=== PATIENT | male | born 1970 | race Caucasian/White ===

== ENCOUNTER 2017-06-08 10:15 | Inpatient (IN) | payer OTHER ==
[2017-06-08] VITALS (10 sets, daily range): BP systolic 95–109; BP diastolic 58–66; PULSE 83–121; RESP 12–14; TEMP 98.2–98.6; O2SAT 99–100
[~2017-06-08] VITALS: Ht 172.7 cm; Wt 130.9 kg
[2017-06-08] MEDS ORDERED: MORPHINE SULFATE 8 MG/ML INJ ONE (10:18)
[2017-06-08] MEDS ORDERED: ceFAZolin 2 GM PREMIX 50 ML ONE (10:18)
[2017-06-08] MEDS ORDERED: ONDANSETRON HCL 4 MG/2 ML VIAL ONE (10:18)
[2017-06-08] MEDS ORDERED: LIDOCAINE 1%/EPINEPHrine 1:100,000 SOLN 20 ML VIAL ONE (10:21)
[2017-06-08] MEDS ORDERED: SUCCINYLCHOLINE CHLORIDE 200 MG/10 ML VIAL ONE (10:36)
[2017-06-08] MEDS ORDERED: PROPOFOL 1000 MG/100 ML INJ 100 ML ONE (10:45)
[2017-06-08 10:47] LABS: AUTOMATED NEUTROPHIL # 14.7 TH/MM3 (1.8-7.7); BASOPHIL # 0.1 TH/MM3 (0-0.2); BASOPHIL % 0.6 % (0.0-2.0); EOSINOPHIL # 0.4 TH/MM3 (0-0.4); EOSINOPHIL % 2.4 % (0.0-4.0); HEMATOCRIT 44.3 % (39.0-51.0); HEMO FLAGS DIFF FINAL; I-STAT SODIUM 143 MMOL/L (138-146); LYMPH % 15.4 % (9.0-44.0); LYMPHOCYTE # 2.9 TH/MM3 (1.0-4.8); MEAN CELL VOLUME 85.3 FL (80.0-100.0); MONO % 4.1 % (0.0-8.0); NEUT % 77.5 % (16.0-70.0); PLATELET COUNT 288 TH/MM3 (150-450); RED BLOOD COUNT 5.19 MIL/MM3 (4.50-5.90); RED CELL DISTRIBUTION WIDTH 13.8 % (11.6-17.2)
[2017-06-08 10:53] LABS: APTT (PATIENT) 24.3 SEC (24.3-30.1); PROTHROMBIN TIME - PATIENT 10.7 SEC (9.8-11.6)
[2017-06-08] MEDS ORDERED: SODIUM CHLORIDE 0.9% FLUSH 10 ML FLUSH IV FLUSH PRN (11:00)
[2017-06-08] MEDS ORDERED: ONDANSETRON HCL 4 MG/2 ML VIAL IV PRN (11:00)
[2017-06-08] MEDS ORDERED: Post-op Orders (for Pharmacy) MISC XX ONE (11:00)
[2017-06-08] MEDS ORDERED: NALOXONE HCL 0.4 MG/ML AMP IV PRN (11:00)
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
[2017-06-08] MEDS ORDERED: IOHEXOL 350 MG/ML 10 ML VIAL (for RAD DIAG) IV ONE (11:17)
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
[2017-06-08] MEDS: LACTATED RINGER'S 1000 ML INJ 1,000 ML IV SCH ×2 (11:30→21:41)
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
[2017-06-08] MEDS ORDERED: ETOMIDATE 20 MG/10 ML VIAL ONE (11:37)
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
[2017-06-08] MEDS ORDERED: MAGNESIUM SULFATE INJ 2 GM in SODIUM CHLORIDE 0.9% INJ 96 ML IV PRN (12:30)
[2017-06-08] MEDS ORDERED: POTASSIUM CHLOR 40 MEQ PREMIX 100 ML IV PRN ×2 (12:30)
[2017-06-08] MEDS ORDERED: MAGNESIUM OXIDE 400 MG TAB PO PRN (12:30)
[2017-06-08] MEDS ORDERED: POTASSIUM PHOSPHATE MONOBASIC 500 MG TAB PO PRN (12:30)
[2017-06-08] MEDS ORDERED: SODIUM PHOSPHATE INJ 30 MMOL in SODIUM CHLOR 0.9% 250 ML INJ 240 ML IV PRN (12:30)
[2017-06-08] MEDS ORDERED: POTASSIUM CHLOR 20 MEQ PREMIX 100 ML IV PRN ×2 (12:30)
[2017-06-08] MEDS ORDERED: POTASSIUM PHOSPHATE MONOBASIC 500 MG TAB PO/TUBE PRN (12:30)
[2017-06-08] MEDS ORDERED: MAGNESIUM SULFATE INJ 4 GM in SODIUM CHLORIDE 0.9% INJ 92 ML IV PRN (12:30)
[2017-06-08] MEDS ORDERED: POTASSIUM PHOSPHATE INJ 30 MMOL in SODIUM CHLOR 0.9% 250 ML INJ 250 ML IV PRN (12:30)
[2017-06-08] MEDS ORDERED: POTASSIUM CHLORIDE 25 MEQ EFFERVESCENT TAB PO PRN (12:30)
[2017-06-08] MEDS: PROPOFOL 1000 MG/100 ML INJ 100 ML IV SCH ×2 (12:37→12:39)
[2017-06-08] MEDS: fentaNYL DRIP 250 ML IV SCH (12:37)
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
[2017-06-08 13:45] LABS: MAGNESIUM 2.4 MG/DL (1.5-2.5)
[2017-06-08 13:58] LABS: BLOOD GAS BASE EXCESS -1.7 mmol/L (-2-2); BLOOD GAS CARBOXYHEMOGLOBIN 0.6 % (0-4); BLOOD GAS HCO3 24 mmol/L (22-26); BLOOD GAS METHEMOGLOBIN 0.7 % (0-2); BLOOD GAS O2 HGB SATURATION 98 % (90-100); BLOOD GAS OXYGEN CONTENT 21.3 Vol % (12.0-20.0); BLOOD GAS PCO2 47 mmHg (38-42); BLOOD GAS PO2 180 mmHG (61-120); BLOOD GAS TOTAL HGB 15.2 G/DL (12.0-16.0); CRITICAL VALUE NO; TEMP CORR TO 98.6
[2017-06-08 13:59] LABS: DRAW SITE LT RADIAL; FIO2 100 %; NUMBER OF ARTERIAL PUNCTURES 1; OXYGEN DEVICE VENTILATOR; STAT NO; ULNAR PULSE PRESENT; VENT SETTINGS PRVC14/550/1.0/+8
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
[2017-06-08] MEDS: PANTOPRAZOLE SODIUM 40 MG VIAL IV SCH (14:55)
--- NOTE | 2017-06-08 16:24 | PD.PROCEDR ---
Procedure Note Procedure DX: Respiratory Failure (J96.00) OP: Insertion Arterial Line ([id number]) Procedure: Jamie test normal left hand. Left wrist supinated, prepped and draped. Left radial artery cannulated with 20 gauge needle and wire easily advanced. Cannula passed over wire to 3 cm. Good waveform observed. Dressing applied. Circulation to left hand intact after procedure. Virgilio Romero MD Jun 08, 2017 16:24
[2017-06-08 16:46] LABS: BLOOD GAS BASE EXCESS -2.7 mmol/L (-2-2); BLOOD GAS CARBOXYHEMOGLOBIN 0.9 % (0-4); BLOOD GAS HCO3 22 mmol/L (22-26); BLOOD GAS METHEMOGLOBIN 0.9 % (0-2); BLOOD GAS O2 HGB SATURATION 96 % (90-100); BLOOD GAS PCO2 43 mmHg (38-42); BLOOD GAS PO2 103 mmHg (61-120); BLOOD GAS TOTAL HGB 13.3 G/DL (12.0-16.0); TEMP CORR TO 98.6
[2017-06-08 16:47] LABS: CRITICAL VALUE NO; OXYGEN DEVICE VENTILATOR
[2017-06-08 16:48] LABS: DRAW SITE ART LINE; FIO2 50 %; NUMBER OF ARTERIAL PUNCTURES 0; STAT NO; ULNAR PULSE PRESENT; VENT SETTINGS BILEVEL
[2017-06-08 20:17] LABS: HEMATOCRIT 38.7 % (39.0-51.0); REVIEW FLAG FINAL
[2017-06-08] MEDS: CHLORHEXIDINE 0.12% (ORAL KIT) 15 ML CUP MT SCH (20:30)
[2017-06-08] MEDS: SODIUM CHLORIDE 0.9% FLUSH 10 ML FLUSH IV FLUSH SCH (20:30)
[2017-06-08] MEDS: DOCUSATE SODIUM 50 MG/SENNA 8.6 MG TAB PO SCH (21:42)
[2017-06-09] VITALS (18 sets, daily range): BP systolic 89–111; BP diastolic 48–59; PULSE 60–94; RESP 12–13; TEMP 98.3–99.1; O2SAT 97–100
[2017-06-09 00:36] LABS: HEMATOCRIT 38.4 % (39.0-51.0); REVIEW FLAG FINAL
[2017-06-09 03:21] LABS: BLOOD GAS BASE EXCESS -1.1 mmol/L (-2-2); BLOOD GAS CARBOXYHEMOGLOBIN 1.1 % (0-4); BLOOD GAS HCO3 23 mmol/L (22-26); BLOOD GAS METHEMOGLOBIN 0.8 % (0-2); BLOOD GAS O2 HGB SATURATION 96 % (90-100); BLOOD GAS OXYGEN CONTENT 16.9 Vol % (12.0-20.0); BLOOD GAS PCO2 41 mmHg (38-42); BLOOD GAS PO2 105 mmHg (61-120); BLOOD GAS TOTAL HGB 12.4 G/DL (12.0-16.0); CRITICAL VALUE NO; OXYGEN DEVICE VENTILATOR; TEMP CORR TO 98.6
[2017-06-09 03:22] LABS: DRAW SITE ART LINE; FIO2 50 %; STAT NO
[2017-06-09 04:54] LABS: HEMATOCRIT 36.4 % (39.0-51.0); REVIEW FLAG FINAL
[2017-06-09 04:56] LABS: BICARBONATE 25.4 MEQ/L (21.0-32.0); POTASSIUM 4.4 MEQ/L (3.5-5.1)
[2017-06-09] MEDS: fentaNYL DRIP 250 ML IV SCH ×2 (05:19→16:26)
--- NOTE | 2017-06-09 06:04 | RADRPT ---
EXAM DATE/TIME: 06/09/2017 05:11 [facility] COMPARISON: CHEST SINGLE AP, June 08, 2017, 10:17. INDICATIONS : Short of breath. Status post intubation. Multiple left rib fractures and recent pneumothorax. MEDICAL HISTORY : None. SURGICAL HISTORY : None. ENCOUNTER: Subsequent ACUITY: 2 days PAIN SCORE: Non-responsive. LOCATION: Bilateral chest FINDINGS: A single AP semierect view of the chest was obtained and demonstrates interval intubation with the en dotracheal tube tip at level of thoracic inlet. A nasogastric tube is been placed and is seen coursin g through the esophagus and into the distal stomach. The right-sided chest tube remains in place with no visualized pneumothorax. There is subcutaneous emphysema projected over left lateral chest wall a nd there are multiple posterior rib fractures again noted. CONCLUSION: 1. Left-sided chest tube in place with no visualized pneumothorax. 2. Interval intubation and placement of nasogastric tube. Gonzalo Millard MD on June 09, 2017 at 6:02 Board Certified Radiologist. This report was verified electronically.
[2017-06-09] MEDS: LACTATED RINGER'S 1000 ML INJ 1,000 ML IV SCH ×2 (06:31→17:00)
[2017-06-09] MEDS: CHLORHEXIDINE 0.12% (ORAL KIT) 15 ML CUP MT SCH ×2 (08:00→19:43)
[2017-06-09] MEDS: DOCUSATE SODIUM 50 MG/SENNA 8.6 MG TAB PO SCH ×2 (09:18→20:31)
[2017-06-09] MEDS: LACTULOSE SYRUP 20 GM/30 ML CUP PO SCH (09:18)
[2017-06-09] MEDS: SODIUM CHLORIDE 0.9% FLUSH 10 ML FLUSH IV FLUSH SCH ×2 (09:19→19:43)
[2017-06-09 09:59] LABS: HEMATOCRIT 34.7 % (39.0-51.0); REVIEW FLAG FINAL
[2017-06-09] MEDS ORDERED: ALBUMIN HUMAN 5% 25 GM/500 ML BOTTLE IV ONE (10:00)
[2017-06-09] MEDS ORDERED: INFLUENZA VIRUS VACCINE (QUADRIVALENT) 0.5 ML SYR IM ONE (10:00)
[2017-06-09] MEDS: PANTOPRAZOLE SODIUM 40 MG VIAL IV SCH (10:12)
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
[2017-06-10] VITALS (20 sets, daily range): BP systolic 97–130; BP diastolic 51–66; PULSE 62–85; RESP 12–13; TEMP 98.5–99.2; O2SAT 97–100
[2017-06-10] MEDS: LACTATED RINGER'S 1000 ML INJ 1,000 ML IV SCH ×2 (03:57→13:00)
[2017-06-10 03:59] LABS: AUTOMATED NEUTROPHIL # 6.4 TH/MM3 (1.8-7.7); BASOPHIL % 0.5 % (0.0-2.0); EOSINOPHIL # 0.1 TH/MM3 (0-0.4); EOSINOPHIL % 1.8 % (0.0-4.0); HEMATOCRIT 29.4 % (39.0-51.0); HEMO FLAGS DIFF FINAL; MEAN CORPUSCULAR HEMOGLOBIN 29.1 PG (27.0-34.0); MEAN CORPUSCULAR HGB CONC 33.9 % (32.0-36.0); MONO % 6.9 % (0.0-8.0); NEUT % 78.8 % (16.0-70.0); PLATELET COUNT 128 TH/MM3 (150-450); RED BLOOD COUNT 3.41 MIL/MM3 (4.50-5.90); RED CELL DISTRIBUTION WIDTH 13.7 % (11.6-17.2); WHITE BLOOD COUNT 8.1 TH/MM3 (4.0-11.0)
[2017-06-10 04:25] LABS: BICARBONATE 24.6 MEQ/L (21.0-32.0)
--- NOTE | 2017-06-10 05:09 | RADRPT ---
EXAM DATE/TIME: 06/10/2017 04:12 [facility] COMPARISON: CHEST SINGLE AP, June 09, 2017, 5:11. INDICATIONS : Short of breath. MEDICAL HISTORY : None. SURGICAL HISTORY : None. ENCOUNTER: Subsequent ACUITY: 2 days PAIN SCORE: 0/10 LOCATION: Bilateral chest FINDINGS: A single AP semierect view of the chest was obtained and again demonstrates endotracheal tube in plac e with the tip of the level of thoracic inlet. A nasogastric tube is seen coursing through the esopha dahiana into the stomach. The left-sided chest tube remains in place with no visualized pneumothorax. The re has been an interval decrease in the subcutaneous emphysema over the left lateral chest wall. Mult iple left rib fractures are again visualized. There are no confluent infiltrates or effusions. CONCLUSION: 1. The left-sided chest tube remains in place with no pneumothorax. 2. Interval decrease in subcutaneous emphysema over the left lateral chest wall. Gonzalo Millard MD on June 10, 2017 at 5:06 Board Certified Radiologist. This report was verified electronically.
[2017-06-10] MEDS: fentaNYL DRIP 250 ML IV SCH (06:25)
[2017-06-10] MEDS: CHLORHEXIDINE 0.12% (ORAL KIT) 15 ML CUP MT SCH ×2 (08:00→21:13)
[2017-06-10] MEDS: LACTULOSE SYRUP 20 GM/30 ML CUP PO SCH (09:00)
[2017-06-10] MEDS: DOCUSATE SODIUM 50 MG/SENNA 8.6 MG TAB PO SCH ×2 (09:00→21:10)
[2017-06-10] MEDS: SODIUM CHLORIDE 0.9% FLUSH 10 ML FLUSH IV FLUSH SCH ×2 (09:00→21:10)
[2017-06-10] MEDS: PANTOPRAZOLE SODIUM 40 MG VIAL IV SCH (11:00)
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
[2017-06-11] VITALS (18 sets, daily range): BP systolic 105–128; BP diastolic 50–76; PULSE 67–88; RESP 10–12; TEMP 98.7–99.7; O2SAT 95–100
[2017-06-11] MEDS: fentaNYL DRIP 250 ML IV SCH ×2 (00:39→14:24)
[2017-06-11] MEDS: PROPOFOL 1000 MG/100 ML INJ 100 ML IV SCH ×3 (02:50→16:45)
--- NOTE | 2017-06-11 02:53 | RADRPT ---
EXAM DATE/TIME: 06/11/2017 02:24 [facility] COMPARISON: CHEST SINGLE AP, June 10, 2017, 4:12. INDICATIONS : Shortness of breath MEDICAL HISTORY : None. SURGICAL HISTORY : None. ENCOUNTER: Subsequent ACUITY: 4 - 6 days PAIN SCORE: Non-responsive. LOCATION: Bilateral chest FINDINGS: A single AP portable erect view of the chest was obtained. The skin demonstrates an endotracheal tube with the tip at level of thoracic inlet. Nasogastric tube is seen coursing through the esophagus int o the stomach. The the left-sided chest tube remains in place. There is no visualized pneumothorax. M ultiple left rib fractures again noted and there is adjacent subcutaneous emphysema. The heart size i s within normal limits. CONCLUSION: 1. Left-sided chest tube remains in place with no pneumothorax. 2. No confluent infiltrates or effusions. 3. Left chest tube with no pneumothorax. Gonzalo Millard MD on June 11, 2017 at 2:51 Board Certified Radiologist. This report was verified electronically.
[2017-06-11 03:44] LABS: AUTOMATED NEUTROPHIL # 6.2 TH/MM3 (1.8-7.7); BASOPHIL % 0.3 % (0.0-2.0); EOSINOPHIL # 0.1 TH/MM3 (0-0.4); EOSINOPHIL % 1.7 % (0.0-4.0); HEMATOCRIT 27.8 % (39.0-51.0); HEMO FLAGS DIFF FINAL; LYMPH % 6.4 % (9.0-44.0); LYMPHOCYTE # 0.5 TH/MM3 (1.0-4.8); MEAN CORPUSCULAR HEMOGLOBIN 29.9 PG (27.0-34.0); MEAN CORPUSCULAR HGB CONC 34.8 % (32.0-36.0); NEUT % 83.6 % (16.0-70.0); PLATELET COUNT 123 TH/MM3 (150-450); RED BLOOD COUNT 3.23 MIL/MM3 (4.50-5.90); RED CELL DISTRIBUTION WIDTH 13.6 % (11.6-17.2); WHITE BLOOD COUNT 7.4 TH/MM3 (4.0-11.0)
[2017-06-11 04:07] LABS: ALT (GPT) 37 U/L (12-78); ANION GAP 6 MEQ/L (5-15); AST (GOT) 50 U/L (15-37); BICARBONATE 27.1 MEQ/L (21.0-32.0); BLOOD UREA NITROGEN 18 MG/DL (7-18); CHLORIDE 109 MEQ/L (98-107); GLOMERULAR FILTRATION RATE 106 ML/MIN (>89); POTASSIUM 3.7 MEQ/L (3.5-5.1); SODIUM (NA) 142 MEQ/L (136-145)
[2017-06-11 04:09] LABS: ALKALINE PHOSPHATASE 43 U/L (45-117); TOTAL BILIRUBIN ADULT 0.6 MG/DL (0.2-1.0)
[2017-06-11 05:10] LABS: BLOOD GAS BASE EXCESS -0.8 mmol/L (-2-2); BLOOD GAS CARBOXYHEMOGLOBIN 1.6 % (0-4); BLOOD GAS HCO3 24 mmol/L (22-26); BLOOD GAS METHEMOGLOBIN 0.8 % (0-2); BLOOD GAS O2 HGB SATURATION 96 % (90-100); BLOOD GAS OXYGEN CONTENT 11.7 Vol % (12.0-20.0); BLOOD GAS PCO2 47 mmHg (38-42); BLOOD GAS PO2 112 mmHg (61-120); BLOOD GAS TOTAL HGB 8.5 G/DL (12.0-16.0); CRITICAL VALUE NO; OXYGEN DEVICE VENT; TEMP CORR TO 98.6
[2017-06-11 05:11] LABS: DRAW SITE ART LINE; FIO2 30 %; STAT NO
[2017-06-11] MEDS: LACTATED RINGER'S 1000 ML INJ 1,000 ML IV SCH ×2 (06:44→20:59)
[2017-06-11] MEDS: CHLORHEXIDINE 0.12% (ORAL KIT) 15 ML CUP MT SCH ×2 (08:00→20:59)
[2017-06-11] MEDS: SODIUM CHLORIDE 0.9% FLUSH 10 ML FLUSH IV FLUSH SCH ×2 (08:59→20:59)
[2017-06-11] MEDS: LACTULOSE SYRUP 20 GM/30 ML CUP PO SCH (08:59)
[2017-06-11] MEDS: DOCUSATE SODIUM 50 MG/SENNA 8.6 MG TAB PO SCH ×2 (08:59→21:03)
[2017-06-11] MEDS ORDERED: BUMETANIDE INJ 1 MG/4 ML VIAL IV PUSH ONE (10:15)
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
[2017-06-11] MEDS: ENOXAPARIN SODIUM 40 MG/0.4 ML SYRINGE SQ SCH (11:30)
[2017-06-11] MEDS: PANTOPRAZOLE SODIUM 40 MG VIAL IV SCH (11:30)
[2017-06-12] VITALS (18 sets, daily range): BP systolic 97–134; BP diastolic 50–66; PULSE 66–87; RESP 8–15; TEMP 98.9–100.2; O2SAT 96–100
[2017-06-12] MEDS: PROPOFOL 1000 MG/100 ML INJ 100 ML IV SCH ×2 (00:54→17:34)
[2017-06-12] MEDS: fentaNYL DRIP 250 ML IV SCH ×2 (03:35→17:34)
[2017-06-12 03:55] LABS: AUTOMATED NEUTROPHIL # 4.9 TH/MM3 (1.8-7.7); BASOPHIL % 0.3 % (0.0-2.0); EOSINOPHIL # 0.3 TH/MM3 (0-0.4); EOSINOPHIL % 4.1 % (0.0-4.0); HEMO FLAGS DIFF FINAL; LYMPH % 9.7 % (9.0-44.0); LYMPHOCYTE # 0.6 TH/MM3 (1.0-4.8); MEAN CELL VOLUME 86.6 FL (80.0-100.0); MEAN CORPUSCULAR HEMOGLOBIN 29.1 PG (27.0-34.0); MEAN CORPUSCULAR HGB CONC 33.6 % (32.0-36.0); MONO % 8.9 % (0.0-8.0); PLATELET COUNT 148 TH/MM3 (150-450); RED BLOOD COUNT 3.23 MIL/MM3 (4.50-5.90); RED CELL DISTRIBUTION WIDTH 13.6 % (11.6-17.2); WHITE BLOOD COUNT 6.4 TH/MM3 (4.0-11.0)
[2017-06-12 04:17] LABS: ALT (GPT) 34 U/L (12-78); ANION GAP 7 MEQ/L (5-15); AST (GOT) 45 U/L (15-37); BICARBONATE 31.5 MEQ/L (21.0-32.0); BLOOD UREA NITROGEN 18 MG/DL (7-18); CHLORIDE 106 MEQ/L (98-107); GLOMERULAR FILTRATION RATE 99 ML/MIN (>89); POTASSIUM 3.6 MEQ/L (3.5-5.1); SODIUM (NA) 144 MEQ/L (136-145)
[2017-06-12 04:19] LABS: ALKALINE PHOSPHATASE 49 U/L (45-117); TOTAL BILIRUBIN ADULT 0.6 MG/DL (0.2-1.0)
[2017-06-12] MEDS: SODIUM CHLORIDE 0.9% FLUSH 10 ML FLUSH IV FLUSH SCH ×2 (09:00→20:17)
[2017-06-12] MEDS: LACTULOSE SYRUP 20 GM/30 ML CUP PO SCH (09:00)
[2017-06-12] MEDS: BISACODYL 10 MG SUPP RECTAL PRN (09:00)
[2017-06-12] MEDS: DOCUSATE SODIUM 50 MG/SENNA 8.6 MG TAB PO SCH ×2 (09:01→20:16)
[2017-06-12] MEDS: CHLORHEXIDINE 0.12% (ORAL KIT) 15 ML CUP MT SCH ×2 (09:01→20:16)
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
[2017-06-12] MEDS: PANTOPRAZOLE SODIUM 40 MG VIAL IV SCH (11:08)
[2017-06-12] MEDS: ENOXAPARIN SODIUM 40 MG/0.4 ML SYRINGE SQ SCH (11:08)
[2017-06-12] MEDS: METHOCARBAMOL 500 MG TAB PO SCH ×2 (11:09→17:33)
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
[2017-06-13] VITALS (17 sets, daily range): BP systolic 99–123; BP diastolic 48–78; PULSE 69–88; RESP 11–12; TEMP 98.3–99.9; O2SAT 95–100
[2017-06-13] MEDS: METHOCARBAMOL 500 MG TAB PO SCH ×3 (02:15→17:53)
[2017-06-13 04:23] LABS: AUTOMATED NEUTROPHIL # 4.8 TH/MM3 (1.8-7.7); BASOPHIL % 0.7 % (0.0-2.0); EOSINOPHIL # 0.4 TH/MM3 (0-0.4); EOSINOPHIL % 5.7 % (0.0-4.0); HEMO FLAGS DIFF FINAL; LYMPH % 13.1 % (9.0-44.0); LYMPHOCYTE # 0.9 TH/MM3 (1.0-4.8); MEAN CELL VOLUME 86.6 FL (80.0-100.0); MEAN CORPUSCULAR HGB CONC 33.5 % (32.0-36.0); MONO % 8.2 % (0.0-8.0); NEUT % 72.3 % (16.0-70.0); PLATELET COUNT 171 TH/MM3 (150-450); RED BLOOD COUNT 3.23 MIL/MM3 (4.50-5.90); RED CELL DISTRIBUTION WIDTH 13.6 % (11.6-17.2); WHITE BLOOD COUNT 6.6 TH/MM3 (4.0-11.0)
[2017-06-13] MEDS: PROPOFOL 1000 MG/100 ML INJ 100 ML IV SCH ×2 (05:02→12:59)
[2017-06-13 05:05] LABS: ALKALINE PHOSPHATASE 56 U/L (45-117); ALT (GPT) 43 U/L (12-78); ANION GAP 6 MEQ/L (5-15); AST (GOT) 55 U/L (15-37); BICARBONATE 32.5 MEQ/L (21.0-32.0); BLOOD UREA NITROGEN 18 MG/DL (7-18); CHLORIDE 106 MEQ/L (98-107); GLOMERULAR FILTRATION RATE 103 ML/MIN (>89); POTASSIUM 3.6 MEQ/L (3.5-5.1); SODIUM (NA) 144 MEQ/L (136-145); TOTAL BILIRUBIN ADULT 0.6 MG/DL (0.2-1.0)
--- NOTE | 2017-06-13 05:44 | RADRPT ---
EXAM DATE/TIME: 06/13/2017 04:13 [facility] COMPARISON: CHEST SINGLE AP, June 11, 2017, 2:24. INDICATIONS : Infiltrate. MEDICAL HISTORY : None. SURGICAL HISTORY : None. ENCOUNTER: Subsequent ACUITY: 4 - 6 days PAIN SCORE: Non-responsive. LOCATION: Bilateral chest FINDINGS: The cardiac silhouette is enlarged in transverse diameter. Support lines and tubes are in satisfactor y position. A left chest tube is in place. There is no evidence of pneumothorax. There is left lower lobe atelectasis versus pneumonia. CONCLUSION: 1. There is no evidence of pneumothorax. 2. Left lower lobe atelectasis versus pneumonia. The findings have worsened when compared with the pr ior examination. Oscar Menon MD on June 13, 2017 at 5:42 Board Certified Radiologist. This report was verified electronically.
[2017-06-13] MEDS: SODIUM CHLORIDE 0.9% FLUSH 10 ML FLUSH IV FLUSH SCH ×2 (08:43→21:54)
[2017-06-13] MEDS: DOCUSATE SODIUM 50 MG/SENNA 8.6 MG TAB PO SCH ×2 (08:43→20:39)
[2017-06-13] MEDS: LACTULOSE SYRUP 20 GM/30 ML CUP PO SCH (08:43)
[2017-06-13] MEDS: LACTATED RINGER'S 1000 ML INJ 1,000 ML IV SCH (08:44)
[2017-06-13] MEDS: CHLORHEXIDINE 0.12% (ORAL KIT) 15 ML CUP MT SCH ×2 (08:44→20:39)
[2017-06-13] MEDS: fentaNYL DRIP 250 ML IV SCH (10:32)
[2017-06-13] MEDS: ENOXAPARIN SODIUM 40 MG/0.4 ML SYRINGE SQ SCH (11:00)
[2017-06-13] MEDS ORDERED: HALOPERIDOL LACTATE 5 MG/ML AMP IV PUSH PRN (12:00)
[2017-06-13] MEDS: ACETAMINOPHEN 650 MG/20.3 ML UDC PO SCH ×3 (13:00→23:54)
[2017-06-13] MEDS: QUEtiapine FUMARATE 25 MG TAB PO SCH ×2 (13:00→20:39)
[2017-06-13] MEDS: PANTOPRAZOLE SODIUM 40 MG VIAL IV SCH (13:00)
[2017-06-13] MEDS: GABAPENTIN 300 MG CAP PO SCH ×2 (13:00→17:53)
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
[2017-06-13] MEDS ORDERED: LACTATED RINGER'S 1000 ML INJ 1,000 ML IV ONE (13:15)
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
[2017-06-13] MEDS ORDERED: BUPIVACAINE HCL PF 0.25% 30 ML VIAL ONE (13:30)
[2017-06-13] MEDS: fentaNYL 2MCG-BUPIV 0.125% INJ 100 ML EPIDURAL SCH (22:59)
[2017-06-14] VITALS (21 sets, daily range): BP systolic 102–119; BP diastolic 52–66; PULSE 57–114; RESP 13–23; TEMP 97.7–102.8; O2SAT 92–100
[2017-06-14] MEDS: METHOCARBAMOL 500 MG TAB PO SCH ×3 (02:41→17:31)
[2017-06-14] MEDS: QUEtiapine FUMARATE 25 MG TAB PO SCH ×3 (04:38→20:59)
[2017-06-14] MEDS: ACETAMINOPHEN 650 MG/20.3 ML UDC PO SCH ×3 (04:38→17:31)
[2017-06-14] MEDS: fentaNYL DRIP 250 ML IV SCH (05:03)
[2017-06-14] MEDS ORDERED: ACETAMINOPHEN 1000 MG/100 ML VIAL IV PRN (09:15)
[2017-06-14] MEDS: CHLORHEXIDINE 0.12% (ORAL KIT) 15 ML CUP MT SCH ×2 (09:20→20:00)
[2017-06-14] MEDS: DOCUSATE SODIUM 50 MG/SENNA 8.6 MG TAB PO SCH ×2 (09:21→20:58)
[2017-06-14] MEDS: LACTULOSE SYRUP 20 GM/30 ML CUP PO SCH (09:21)
[2017-06-14] MEDS: SODIUM CHLORIDE 0.9% FLUSH 10 ML FLUSH IV FLUSH SCH ×2 (09:21→20:58)
[2017-06-14] MEDS: GABAPENTIN 300 MG CAP PO SCH ×3 (09:21→17:31)
[2017-06-14] MEDS: PANTOPRAZOLE SODIUM 40 MG VIAL IV SCH (09:21)
[2017-06-14 10:30] LABS: BACTERIA, URINE RARE /hpf; BLOOD, URINE NEG (NEG); GLUCOSE,URINE NEG (NEG); KETONE, URINE NEG (NEG); MUCUS URINE FEW /lpf (OCC); NITRITE,URINE NEG (NEG); URINE COLOR YELLOW (YELLW/STRAW)
[2017-06-14 10:35] LABS: COMMENT (UR) CATH-CULTURE IND; CULTURE IF INDICATED CATH CULTURE IND
[2017-06-14] MEDS ORDERED: VANCOMYCIN INJ 1,250 MG in SODIUM CHLOR 0.9% 250 ML INJ 250 ML IV ONE (11:00)
[2017-06-14] MEDS ORDERED: Vancomycin Consult Pharmacy 1 EA OTHER SCH (11:00)
[2017-06-14] MEDS: PROPOFOL 1000 MG/100 ML INJ 100 ML IV SCH (11:10)
[2017-06-14] MEDS: fentaNYL 2MCG-BUPIV 0.125% INJ 100 ML EPIDURAL SCH ×2 (11:23→20:57)
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
--- NOTE | 2017-06-14 11:55 | HHI.PR ---
Subjective Remarks Epidural Management Note Epidural Day: 2 Epidural Level: T7-8 Epidural Current settings: 8mL/hr, 3mL q15min demand, 0.125% bupiv, 2mcg/mL fentanyl Pain level: Subjective: Patient complains of mild abdominal pain. intubated, but expressing that chest has minimal discomfort. Patient did spike fever this morning, source likely pneumonia vs. intra-abdominal process. patient does not appear septic or toxic or bacteremic. labs pending. will continue epidural as patient is receiving benefit from it. If patient becomes toxic or bacteremic, will d/c epidural. Adjuvant Pain medications: scheduled tylenol 650mg po q6h scheduled oxycodone 10mg po q4h gabapentin 300mg po TID Changes made to current regimen: none. appears to be clinically improving pain compared with yesterday. would consider increasing gabapentin tomorrow. Medical Necessity: This patient has ongoing and active pain needs that are being met by neuraxial analgesia. Specifically, pain associated with multiple bilateral rib fractures and flail chest. The neuraxial analgesia continues to be required today on my assessment. Enamorado catheter: A enamorado catheter IS NOT required for this patient. This patient may ambulate with assistance from an epidural standpoint. Garrett Munoz MD Jun 14, 2017 11:55
[2017-06-14 12:19] LABS: HEMATOCRIT 30.3 % (39.0-51.0); MEAN CELL VOLUME 86.8 FL (80.0-100.0); MEAN CORPUSCULAR HEMOGLOBIN 29.2 PG (27.0-34.0); MEAN CORPUSCULAR HGB CONC 33.6 % (32.0-36.0); PLATELET COUNT 209 TH/MM3 (150-450); RED BLOOD COUNT 3.49 MIL/MM3 (4.50-5.90); RED CELL DISTRIBUTION WIDTH 13.5 % (11.6-17.2); REVIEW FLAG FINAL; WHITE BLOOD COUNT 10.8 TH/MM3 (4.0-11.0)
[2017-06-14] MEDS: PIPERACIL-TAZO 3.375 GM PREMIX 50 ML IV SCH ×2 (12:20→17:31)
[2017-06-14 12:35] LABS: BICARBONATE 31.9 MEQ/L (21.0-32.0); POTASSIUM 3.7 MEQ/L (3.5-5.1)
[2017-06-14] MEDS ORDERED: IOHEXOL 350 MG/ML 10 ML VIAL (for RAD DIAG) IV ONE (14:03)
--- NOTE | 2017-06-14 14:14 | RADRPT ---
EXAM DATE/TIME: 06/14/2017 13:46 [facility] COMPARISON: CT THORAX W CONTRAST, June 14, 2017, 13:46. CT ABDOMEN & PELVIS W CONTRAST, June 08, 2017, 11:04. INDICATIONS : Abdomen pain. IV CONTRAST: 90 cc Omnipaque 350 (iohexol) IV ; Cumulative dose for multiple exams. ORAL CONTRAST: No oral contrast ingested. RADIATION DOSE: 19.96 CTDIvol (mGy) ; Combined studies - Thorax/Abdomen/Pelvis MEDICAL HISTORY : None SURGICAL HISTORY : None. ENCOUNTER: Initial ACUITY: 1 day PAIN SCALE: 3/10 LOCATION: Bilateral abdomen. TECHNIQUE: Volumetric scanning of the abdomen and pelvis was performed. Using automated exposure control and ad justment of the mA and/or kV according to patient size, radiation dose was kept as low as reasonably achievable to obtain optimal diagnostic quality images. DICOM format image data is available electro nically for review and comparison. FINDINGS: LIVER: Homogeneous density without lesion. There is no dilation of the biliary tree. No calcified gallston es. SPLEEN: Healing splenic lacerations noted. A 3 cm rounded area of low attenuation has developed along the ant erior margin of the spleen tip. PANCREAS: Within normal limits. KIDNEYS: Normal in size and shape. There is no mass, stone or hydronephrosis. ADRENAL GLANDS: Within normal limits. VASCULAR: There is no aortic aneurysm. BOWEL/MESENTERY: The stomach, small bowel, and colon demonstrate no acute abnormality. There is no free intraperitone al air or fluid. ABDOMINAL WALL: There is edema of the left lateral abdominal wall subcutaneous fat RETROPERITONEUM: There is no lymphadenopathy. BLADDER: Decompressed with a Iraheta. REPRODUCTIVE: Within normal limits. INGUINAL: There is no lymphadenopathy or hernia. MUSCULOSKELETAL: Within normal limits for patient age. CONCLUSION: 1. Left lateral abdominal wall subcutaneous edema, nonspecific but cellulitis would be in the differe ntial. No organized or drainable fluid. 2. Healing splenic lacerations. Rounded 3 cm area of low attenuation anterior tip of the spleen, coul d be a small intracapsular seroma. Splenic abscess would be in the differential. No other focal abnor malities are seen within the abdominal or pelvic cavity. Brando Angel MD on June 14, 2017 at 14:07 Board Certified Radiologist. This report was verified electronically.
--- NOTE | 2017-06-14 14:18 | RADRPT ---
EXAM DATE/TIME: 06/14/2017 13:46 [facility] COMPARISON: CT ABDOMEN & PELVIS W CONTRAST, June 14, 2017, 13:46. CT THORAX W CONTRAST, June 08, 2017, 11:04. INDICATIONS : Shortness of breath. IV CONTRAST: 90 cc Omnipaque 350 (iohexol) IV ; Cumulative dose for multiple exams. RADIATION DOSE: 19.96 CTDIvol (mGy) ; Combined studies - Thorax/Abdomen/Pelvis MEDICAL HISTORY : None SURGICAL HISTORY : None. ENCOUNTER: Initial ACUITY: 1 day PAIN SCALE: Non-responsive LOCATION: Bilateral chest TECHNIQUE: Volumetric scanning of the chest was performed. Using automated exposure control and adjustment of t he mA and/or kV according to patient size, radiation dose was kept as low as reasonably achievable to obtain optimal diagnostic quality images. DICOM format image data is available electronically for review and comparison. Follow-up recommendations for incidentally detected pulmonary nodules are based at a minimum on nodul e size and patient risk factors according to Fleischner Society Guidelines. FINDINGS: LUNGS: There is dependent consolidation of both lungs and tiny bilateral pleural effusions. A left chest tub e is present. The tip is in the consolidated superior segment of the left lower lobe. A tiny anterior left pneumothorax is present. There is chest wall emphysema. There is also some subcutaneous edema o f the left lateral chest wall and tracking anteriorly into the left lateral abdominal wall. PLEURA: There is no pleural thickening or pleural effusion. MEDIASTINUM: The heart and great vessels demonstrate no acute abnormality. There is no mediastinal or hilar lymph adenopathy. AXILLAE: Within normal limits. No lymphadenopathy. SKELETAL: Displaced left rib fractures are again noted. No new or acute bony abnormality demonstrated. CONCLUSION: 1. Bilateral pulmonary consolidation, mostly dependent consolidation of both lower lobes. There are a lso very small bilateral pleural effusions. 2. Left chest tube in place. Tiny pneumothorax and mild chest wall emphysema. 3. Broad area of subcutaneous edema of the left lateral chest and abdominal wall. Nothing organized o r drainable. Brando Angel MD on June 14, 2017 at 14:13 Board Certified Radiologist. This report was verified electronically.
[2017-06-14] MEDS: VANCOMYCIN INJ 2,000 MG in SODIUM CHLORID 0.9% 500 ML INJ 500 ML IV SCH (14:40)
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
[2017-06-15] VITALS (19 sets, daily range): BP systolic 103–153; BP diastolic 56–66; PULSE 83–111; RESP 18–28; TEMP 98.5–101.9; O2SAT 91–100
[2017-06-15] MEDS: PIPERACIL-TAZO 3.375 GM PREMIX 50 ML IV SCH ×4 (02:49→16:58)
[2017-06-15] MEDS: VANCOMYCIN INJ 2,000 MG in SODIUM CHLORID 0.9% 500 ML INJ 500 ML IV SCH ×2 (02:51→12:44)
[2017-06-15] MEDS: ACETAMINOPHEN 650 MG/20.3 ML UDC PO SCH ×4 (02:51→16:58)
[2017-06-15] MEDS: METHOCARBAMOL 500 MG TAB PO SCH ×3 (02:52→16:59)
[2017-06-15 05:48] LABS: BICARBONATE 29.3 MEQ/L (21.0-32.0); POTASSIUM 3.7 MEQ/L (3.5-5.1)
[2017-06-15 05:58] LABS: HEMATOCRIT 26.8 % (39.0-51.0); MEAN CORPUSCULAR HEMOGLOBIN 28.1 PG (27.0-34.0); MEAN CORPUSCULAR HGB CONC 32.7 % (32.0-36.0); PLATELET COUNT 200 TH/MM3 (150-450); RED BLOOD COUNT 3.11 MIL/MM3 (4.50-5.90); RED CELL DISTRIBUTION WIDTH 13.7 % (11.6-17.2); WHITE BLOOD COUNT 9.7 TH/MM3 (4.0-11.0)
[2017-06-15 05:59] LABS: REVIEW FLAG FINAL
[2017-06-15] MEDS: QUEtiapine FUMARATE 25 MG TAB PO SCH ×2 (06:14→21:45)
[2017-06-15] MEDS: CHLORHEXIDINE 0.12% (ORAL KIT) 15 ML CUP MT SCH ×2 (08:00→20:00)
[2017-06-15] MEDS: GABAPENTIN 300 MG CAP PO SCH ×3 (08:10→16:59)
[2017-06-15] MEDS: SODIUM CHLORIDE 0.9% FLUSH 10 ML FLUSH IV FLUSH SCH ×2 (08:10→21:00)
[2017-06-15] MEDS: DOCUSATE SODIUM 50 MG/SENNA 8.6 MG TAB PO SCH ×2 (08:10→21:44)
[2017-06-15] MEDS: BISACODYL 10 MG SUPP RECTAL PRN (08:10)
[2017-06-15] MEDS: LACTULOSE SYRUP 20 GM/30 ML CUP PO SCH (08:10)
[2017-06-15] MEDS: fentaNYL 2MCG-BUPIV 0.125% INJ 100 ML EPIDURAL SCH ×2 (09:52→21:45)
[2017-06-15] MEDS: PANTOPRAZOLE SODIUM 40 MG VIAL IV SCH (09:52)
[2017-06-15] MEDS ORDERED: MAGNESIUM CITRATE SOLN 300 ML BTL PO ONE (11:00)
[2017-06-15] MEDS: ARTIFICIAL TEARS OPTH SOLN 15 ML BTL EACH EYE SCH ×3 (12:44→21:43)
[2017-06-15] MEDS: MAGNESIUM SULFATE 1 GM PREMIX 100 ML IV SCH ×2 (12:45→14:08)
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
--- NOTE | 2017-06-15 23:06 | HHI.PR ---
Subjective Remarks Epidural Management Note Epidural Day: 3 Epidural Level: T7-8 Epidural Current settings: 8mL/hr, 3mL q15min demand, 0.125% bupiv, 2mcg/mL fentanyl Pain level: Subjective: pain improved. no specific complaints. afebrile. wbc downtrending. pneumonia. no bacteremia. still receiving adequate pain control with epidural. Adjuvant Pain medications: scheduled tylenol 650mg po q6h scheduled oxycodone 10mg po q4h gabapentin 300mg po TID Changes made to current regimen: none. appears to be clinically improving pain compared with yesterday. Medical Necessity: This patient has ongoing and active pain needs that are being met by neuraxial analgesia. Specifically, pain associated with multiple bilateral rib fractures and flail chest. The neuraxial analgesia continues to be required today on my assessment. Enamorado catheter: A enamorado catheter IS NOT required for this patient. This patient may ambulate with assistance from an epidural standpoint. Objective Vital Signs Date Time Temp Pulse Resp B/P Pulse Ox O2 Delivery O2 Flow Rate FiO2 06/15/17 22:00 83 06/15/17 21:45 17 06/15/17 20:19 96 40 06/15/17 20:00 40 06/15/17 20:00 83 06/15/17 20:00 98.5 90 24 118/66 97 06/15/17 18:00 99 06/15/17 16:00 99.8 102 19 123/66 99 06/15/17 16:00 102 06/15/17 16:00 40 06/15/17 15:19 98 40 06/15/17 14:00 111 06/15/17 12:00 45 06/15/17 12:00 111 06/15/17 12:00 101.9 111 26 132/63 94 06/15/17 11:04 93 40 06/15/17 10:00 94 06/15/17 09:52 17 06/15/17 08:20 50 06/15/17 08:17 91 50 06/15/17 08:00 100.2 106 28 153/64 92 06/15/17 08:00 106 06/15/17 08:00 50 06/15/17 06:00 93 06/15/17 05:00 50 06/15/17 05:00 92 50 06/15/17 04:31 92 40 06/15/17 04:00 40 06/15/17 04:00 99.6 84 18 103/56 93 06/15/17 04:00 90 06/15/17 03:50 16 06/15/17 03:50 16 06/15/17 02:00 100 06/15/17 01:04 96 40 06/15/17 00:00 99.0 92 25 120/60 100 06/15/17 00:00 40 06/15/17 00:00 92 I/O 06/14/17 06/14/17 06/14/17 06/15/17 06/15/17 06/15/17 06:59 14:59 22:59 06:59 14:59 22:59 Intake Total 778 ml 545 ml 1190 ml 983 ml 1035 ml 1560 ml Output Total 405 ml 415 ml 660 ml 610 ml 370 ml Balance 373 ml 130 ml 530 ml 983 ml 425 ml 1190 ml Intake Oral 0 ml 0 ml 0 ml IV Total 212 ml 233 ml 845 ml 513 ml 248 ml 1020 ml Tube Feeding 446 ml 192 ml 225 ml 350 ml 387 ml 260 ml Epidural 0 ml 0 ml 0 ml 0 ml 160 ml Tube Irrigant 120 ml Other 120 ml 120 ml 120 ml 400 ml 120 ml Output Urine Total 325 ml 325 ml 600 ml 500 ml 350 ml Stool Total 0 ml 0 ml Tube Feeding Residual Discard 0 ml 0 ml 0 ml 0 ml 0 ml Chest Tube Drainage Total 80 ml 90 ml 60 ml 110 ml 20 ml # Bowel Movements 0 0 0 Result Diagram: 06/15/178 06/15/17 0448 Garrett Munoz MD Jun 15, 2017 23:05
[2017-06-16] VITALS (21 sets, daily range): BP systolic 102–154; BP diastolic 55–79; PULSE 77–134; RESP 15–34; TEMP 98.5–100.2; O2SAT 88–100
[2017-06-16] MEDS: ARTIFICIAL TEARS OPTH SOLN 15 ML BTL EACH EYE SCH ×6 (00:30→21:22)
[2017-06-16] MEDS: ACETAMINOPHEN 650 MG/20.3 ML UDC PO SCH ×5 (00:31→23:36)
[2017-06-16] MEDS: PIPERACIL-TAZO 3.375 GM PREMIX 50 ML IV SCH ×3 (00:31→13:14)
[2017-06-16] MEDS ORDERED: PHARMACY ORDERED LAB ONE (01:45)
[2017-06-16] MEDS: METHOCARBAMOL 500 MG TAB PO SCH ×3 (03:00→17:49)
[2017-06-16] MEDS: VANCOMYCIN INJ 2,000 MG in SODIUM CHLORID 0.9% 500 ML INJ 500 ML IV SCH (03:00)
[2017-06-16 05:03] LABS: HEMATOCRIT 28.1 % (39.0-51.0); MEAN CELL VOLUME 85.8 FL (80.0-100.0); MEAN CORPUSCULAR HEMOGLOBIN 29.4 PG (27.0-34.0); MEAN CORPUSCULAR HGB CONC 34.2 % (32.0-36.0); PLATELET COUNT 224 TH/MM3 (150-450); RED BLOOD COUNT 3.27 MIL/MM3 (4.50-5.90); RED CELL DISTRIBUTION WIDTH 13.9 % (11.6-17.2); REVIEW FLAG FINAL; WHITE BLOOD COUNT 8.4 TH/MM3 (4.0-11.0)
[2017-06-16 05:34] LABS: BICARBONATE 31.8 MEQ/L (21.0-32.0)
[2017-06-16] MEDS: CHLORHEXIDINE 0.12% (ORAL KIT) 15 ML CUP MT SCH ×2 (08:00→21:21)
[2017-06-16] MEDS: GABAPENTIN 300 MG CAP PO SCH ×3 (08:23→17:49)
[2017-06-16] MEDS: LACTULOSE SYRUP 20 GM/30 ML CUP PO SCH (08:24)
[2017-06-16] MEDS: DOCUSATE SODIUM 50 MG/SENNA 8.6 MG TAB PO SCH ×2 (08:24→21:21)
[2017-06-16] MEDS: SODIUM CHLORIDE 0.9% FLUSH 10 ML FLUSH IV FLUSH SCH ×2 (09:00→21:00)
--- NOTE | 2017-06-16 10:40 | RADRPT ---
EXAM DATE/TIME: 06/16/2017 10:05 [facility] COMPARISON: CHEST SINGLE AP, June 13, 2017, 4:13. CT THORAX W CONTRAST, June 14, 2017, 13:46. INDICATIONS : Short of breath, evaluate infiltrate MEDICAL HISTORY : pneumothorax, rib fractures SURGICAL HISTORY : chest tube ENCOUNTER: Subsequent ACUITY: 1 week PAIN SCORE: Non-responsive. LOCATION: Bilateral chest FINDINGS: Endotracheal tube, nasogastric tube and left thoracostomy tube remain in place. There is a small pers istent left pneumothorax medially and apical. There is lung contusion mainly in the left lung base an d symmetrically diminished lung volumes and mild parenchymal opacity elsewhere which could be develop ing edema. Left-sided rib fractures are again noted. CONCLUSION: Some interval worsening in aeration. Brando Marquez MD on June 16, 2017 at 10:34 Board Certified Radiologist. This report was verified electronically.
[2017-06-16] MEDS: HEPARIN SODIUM - SQ 10,000 UNITS/ML VIAL SQ SCH ×2 (11:15→23:36)
[2017-06-16] MEDS: PANTOPRAZOLE SODIUM 40 MG VIAL IV SCH (11:15)
[2017-06-16] MEDS ORDERED: FUROSEMIDE 20 MG/2 ML VIAL IV PUSH ONE (11:30)
[2017-06-16] MEDS ORDERED: RESP: RACEPINEPHRINE 2.25% 0.5 ML NEB ONE ×2 (12:03→12:23)
[2017-06-16] MEDS ORDERED: FUROSEMIDE 40 MG/4 ML VIAL ONE (12:12)
[2017-06-16] MEDS ORDERED: LORazepam 2 MG/ML VIAL ONE (12:12)
[2017-06-16] MEDS ORDERED: ETOMIDATE 20 MG/10 ML VIAL ONE (12:34)
[2017-06-16] MEDS ORDERED: SUCCINYLCHOLINE CHLORIDE 200 MG/10 ML VIAL ONE (12:35)
[2017-06-16] MEDS ORDERED: LORazepam 2 MG/ML VIAL IV PUSH ONE (13:00)
[2017-06-16] MEDS ORDERED: ETOMIDATE 20 MG/10 ML VIAL IV PUSH ONE (13:00)
[2017-06-16] MEDS ORDERED: FUROSEMIDE 40 MG/4 ML VIAL IV PUSH ONE (13:00)
[2017-06-16] MEDS ORDERED: RESP: RACEPINEPHRINE 2.25% 0.5 ML NEB NEB ONE ×3 (13:00→15:45)
[2017-06-16] MEDS ORDERED: SUCCINYLCHOLINE CHLORIDE 200 MG/10 ML VIAL IV PUSH ONE (13:00)
[2017-06-16] MEDS: PROPOFOL 1000 MG/100 ML INJ 100 ML IV SCH ×3 (13:02→23:36)
--- NOTE | 2017-06-16 13:46 | RADRPT ---
EXAM DATE/TIME: 06/16/2017 13:05 [facility] COMPARISON: CHEST SINGLE AP, June 16, 2017, 10:05. INDICATIONS : Post ET tube placement. MEDICAL HISTORY : pneumothorax, rib fractures. SURGICAL HISTORY : chest tube. ENCOUNTER: Subsequent ACUITY: 1 day PAIN SCORE: Non-responsive. LOCATION: Bilateral chest FINDINGS: The left chest tube remains in place. There is no pneumothorax. There are scattered infiltrates bilat erally which are about the same compared to the prior exam. The endotracheal tube remains in place. T he heart size is stable. No significant pleural effusions are seen. Multiple left-sided rib fractures are again demonstrated. These are unchanged in position. CONCLUSION: 1. No significant interval change compared to the prior exam. 2. No evidence of pneumothorax. Fran Patrick MD on June 16, 2017 at 13:43 Board Certified Radiologist. This report was verified electronically.
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
[2017-06-16] MEDS: VANCOMYCIN INJ 2,500 MG in SODIUM CHLORID 0.9% 500 ML INJ 500 ML IV SCH (14:25)
[2017-06-16] MEDS: DEXAMETHASONE SOD PHOS 4 MG/ML VIAL IV SCH ×2 (16:04→23:36)
[2017-06-16] MEDS: fentaNYL 2MCG-BUPIV 0.125% INJ 100 ML EPIDURAL SCH (17:20)
[2017-06-16] MEDS: LEVOFLOXACIN 750 MG PREMIX INJ 150 ML IV SCH (17:49)
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
--- NOTE | 2017-06-16 19:47 | HHI.PR ---
Subjective Remarks Epidural Management Note Epidural Day: 4 Epidural Level: T7-8 Epidural Current settings: 8mL/hr, 3mL q15min demand, 0.125% bupiv, 2mcg/mL fentanyl Pain level: unable to be obtained- patient recently re-intubated. Subjective: pain was very well controlled. patient extubated, but had upper airway stridor requiring reintubation. during stridor event, patient very labored, but without chest pain. now with acinetobacter pneumonia. Adjuvant Pain medications: scheduled tylenol 650mg po q6h scheduled oxycodone 10mg po q4h gabapentin 300mg po TID Changes made to current regimen: given risk-benefit of leaving epidural since it is already day 4 and the patient will not be extubated now for at least 24-48 is in favor of discontinuing the epidural. epidural was d/c'd on my evaluation, tip intact. Medical Necessity: This patient has ongoing and active pain needs that are being met by neuraxial analgesia. Specifically, pain associated with multiple bilateral rib fractures and flail chest. Enamorado catheter: A enamorado catheter IS NOT required for this patient. This patient may ambulate with assistance from an epidural standpoint. Objective Vital Signs Date Time Temp Pulse Resp B/P Pulse Ox O2 Delivery O2 Flow Rate FiO2 06/16/17 18:42 22 06/16/17 18:00 81 06/16/17 17:20 17 06/16/17 17:04 17 06/16/17 16:08 97 70 06/16/17 16:00 86 06/16/17 16:00 70 06/16/17 16:00 99.8 94 19 102/56 98 06/16/17 14:00 96 06/16/17 13:06 100 90 06/16/17 12:45 100 06/16/17 12:10 88 Bi-Pap 100 06/16/17 12:10 98 60 06/16/17 12:00 134 06/16/17 12:00 100.2 124 34 154/79 91 06/16/17 11:58 88 BiPAP/CPAP 100 06/16/17 11:30 100 40 06/16/17 11:23 40 06/16/17 10:00 88 06/16/17 08:00 98.5 90 18 114/73 91 Arterial Line 06/16/17 08:00 40 06/16/17 08:00 84 06/16/17 07:54 93 40 06/16/17 06:00 99 06/16/17 04:07 100 40 06/16/17 04:00 99.1 81 15 103/55 100 06/16/17 04:00 40 06/16/17 04:00 94 06/16/17 02:00 80 06/16/17 00:53 99 40 06/16/17 00:00 40 06/16/17 00:00 99.0 86 26 107/60 99 06/16/17 00:00 88 06/15/17 22:00 83 06/15/17 21:45 17 06/15/17 20:19 96 40 06/15/17 20:00 40 06/15/17 20:00 83 06/15/17 20:00 98.5 90 24 118/66 97 I/O 06/15/17 06/15/17 06/15/17 06/16/17 06/16/17 06/16/17 07:00 15:00 23:00 07:00 15:00 23:00 Intake Total 983 ml 1035 ml 1560 ml 755 ml 1059 ml 88 ml Output Total 610 ml 370 ml 1060 ml 1455 ml Balance 983 ml 425 ml 1190 ml -305 ml -396 ml 88 ml Intake Oral 0 ml 0 ml 0 ml IV Total 513 ml 248 ml 1020 ml 465 ml 436 ml 88 ml Tube Feeding 350 ml 387 ml 260 ml 170 ml 323 ml Epidural 0 ml 0 ml 160 ml Tube Irrigant 300 ml Other 120 ml 400 ml 120 ml 120 ml Output Urine Total 500 ml 350 ml 1000 ml 1375 ml Stool Total 0 ml 0 ml Tube Feeding Residual Discard 0 ml 0 ml Chest Tube Drainage Total 110 ml 20 ml 60 ml 80 ml # Bowel Movements 0 0 Result Diagram: 06/16/17 0423 06/16/17 042 Garrett Munoz MD Jun 16, 2017 19:46
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
[2017-06-16] MEDS: QUEtiapine FUMARATE 25 MG TAB PO SCH (21:20)
[2017-06-17] VITALS (16 sets, daily range): BP systolic 92–109; BP diastolic 50–67; PULSE 64–82; RESP 17–20; TEMP 97.2–99.3; O2SAT 93–100
[2017-06-17] MEDS: METHOCARBAMOL 500 MG TAB PO SCH ×3 (03:13→17:39)
[2017-06-17] MEDS: VANCOMYCIN INJ 2,500 MG in SODIUM CHLORID 0.9% 500 ML INJ 500 ML IV SCH ×2 (03:14→13:52)
[2017-06-17] MEDS: DEXAMETHASONE SOD PHOS 4 MG/ML VIAL IV SCH ×4 (03:14→22:48)
[2017-06-17] MEDS: PROPOFOL 1000 MG/100 ML INJ 100 ML IV SCH ×5 (03:50→23:58)
[2017-06-17] MEDS: ARTIFICIAL TEARS OPTH SOLN 15 ML BTL EACH EYE SCH ×7 (03:51→23:59)
[2017-06-17 04:40] LABS: HEMATOCRIT 31.8 % (39.0-51.0); MEAN CELL VOLUME 87.2 FL (80.0-100.0); MEAN CORPUSCULAR HEMOGLOBIN 28.7 PG (27.0-34.0); MEAN CORPUSCULAR HGB CONC 32.9 % (32.0-36.0); PLATELET COUNT 303 TH/MM3 (150-450); RED BLOOD COUNT 3.65 MIL/MM3 (4.50-5.90); RED CELL DISTRIBUTION WIDTH 13.8 % (11.6-17.2); REVIEW FLAG FINAL; WHITE BLOOD COUNT 10.2 TH/MM3 (4.0-11.0)
[2017-06-17 05:06] LABS: BICARBONATE 28.9 MEQ/L (21.0-32.0); POTASSIUM 4.8 MEQ/L (3.5-5.1)
[2017-06-17] MEDS: ACETAMINOPHEN 650 MG/20.3 ML UDC PO SCH ×4 (05:55→23:50)
[2017-06-17] MEDS: CHLORHEXIDINE 0.12% (ORAL KIT) 15 ML CUP MT SCH ×2 (08:00→20:00)
[2017-06-17] MEDS: LACTULOSE SYRUP 20 GM/30 ML CUP PO SCH (08:22)
[2017-06-17] MEDS: DOCUSATE SODIUM 50 MG/SENNA 8.6 MG TAB PO SCH ×2 (08:22→20:33)
[2017-06-17] MEDS: GABAPENTIN 300 MG CAP PO SCH ×3 (08:22→17:39)
[2017-06-17] MEDS: SODIUM CHLORIDE 0.9% FLUSH 10 ML FLUSH IV FLUSH SCH ×2 (08:22→20:33)
[2017-06-17] MEDS: PANTOPRAZOLE SODIUM 40 MG VIAL IV SCH (10:21)
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
[2017-06-17] MEDS: ENOXAPARIN SODIUM 40 MG/0.4 ML SYRINGE SQ SCH (11:53)
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
--- NOTE | 2017-06-17 14:47 | HHI.IDPN ---
Note Infectious Disease Note Patient on the vent and sedated. Afebrile. Reintubated for stridor. MEDICATIONS 1. Vancomycin. 2. Levaquin. 3. Dexamethasone. OBJ: Vital Signs Date Time Temp Pulse Resp B/P Pulse Ox O2 Delivery O2 Flow Rate FiO2 06/17/17 12:00 98.6 65 18 98/58 95 06/17/17 12:00 64 06/17/17 11:19 93 50 06/17/17 08:00 82 06/17/17 08:00 50 06/17/17 08:00 97.2 82 18 92/51 94 06/17/17 07:50 93 50 06/17/17 06:00 75 06/17/17 04:00 79 06/17/17 04:00 50 06/17/17 04:00 99.3 79 18 109/67 93 06/17/17 03:47 93 50 06/17/17 02:00 73 06/17/17 00:30 98 Mechanical Ventilator 50 06/17/17 00:25 98 50 06/17/17 00:00 50 06/17/17 00:00 97.8 76 17 96/61 97 06/17/17 00:00 76 06/16/17 22:00 80 06/16/17 20:34 99 70 06/16/17 20:00 99.2 77 22 107/63 97 06/16/17 20:00 70 06/16/17 20:00 77 06/16/17 19:00 100 Mechanical Ventilator 70 06/16/17 18:42 22 06/16/17 18:00 81 06/16/17 17:20 17 06/16/17 17:04 17 06/16/17 16:08 97 70 06/16/17 16:00 86 06/16/17 16:00 70 06/16/17 16:00 99.8 94 19 102/56 98 06/16/17 06/16/17 06/17/17 15:00 23:00 07:00 Intake Total 1059 ml 2200 ml 1027 ml Output Total 1455 ml 1440 ml 870 ml Balance -396 ml 760 ml 157 ml IV Total 436 ml 1672 ml 663 ml Tube Feeding 323 ml 408 ml 304 ml Tube Irrigant 300 ml Other 120 ml 60 ml Output Urine Total 1375 ml 1400 ml 850 ml Chest Tube Drainage Total 80 ml 40 ml 20 ml # Bowel Movements 0 2 1 Laboratory Tests Test 06/16/17 06/17/17 04:23 04:00 White Blood Count 8.4 TH/MM3 10.2 TH/MM3 Red Blood Count 3.27 MIL/MM3 3.65 MIL/MM3 Hemoglobin 9.6 GM/DL 10.5 GM/DL Hematocrit 28.1 % 31.8 % Mean Corpuscular Volume 85.8 FL 87.2 FL Mean Corpuscular Hemoglobin 29.4 PG 28.7 PG Mean Corpuscular Hemoglobin 34.2 % 32.9 % Concent Red Cell Distribution Width 13.9 % 13.8 % Platelet Count 224 TH/MM3 303 TH/MM3 Mean Platelet Volume 7.6 FL 7.0 FL Laboratory Tests Test 06/16/17 06/17/17 04:23 04:00 Sodium Level 143 MEQ/L 142 MEQ/L Potassium Level 4.0 MEQ/L 4.8 MEQ/L Chloride Level 107 MEQ/L 105 MEQ/L Carbon Dioxide Level 31.8 MEQ/L 28.9 MEQ/L Anion Gap 4 MEQ/L 8 MEQ/L Blood Urea Nitrogen 17 MG/DL 24 MG/DL Creatinine 0.80 MG/DL 1.16 MG/DL Estimat Glomerular Filtration 103 ML/MIN 67 ML/MIN Rate Random Glucose 109 MG/DL 164 MG/DL Calcium Level 7.8 MG/DL 8.6 MG/DL Microbiology Date/Time Procedure Status Source Growth 06/14/17 20:38 Aerobic Blood Culture - Preliminary Resulted Blood Peripheral NO GROWTH IN 3 DAYS 06/14/17 20:38 Anaerobic Blood Culture - Preliminary Resulted Blood Peripheral NO GROWTH IN 3 DAYS IMAGING: Chest X-Ray 06/16/17 0000 Signed Impressions: Service Date/Time: Friday, June 16, 2017 13:05 - CONCLUSION: 1. No significant interval change compared to the prior exam. 2. No evidence of pneumothorax. Fran Patrick MD Chest CT 06/14/17 0000 Signed Impressions: Service Date/Time: Wednesday, June 14, 2017 13:46 - CONCLUSION: 1. Bilateral pulmonary consolidation, mostly dependent consolidation of both lower lobes. There are also very small bilateral pleural effusions. 2. Left chest tube in place. Tiny pneumothorax and mild chest wall emphysema. 3. Broad area of subcutaneous edema of the left lateral chest and abdominal wall. Nothing organized or drainable. Brando Angel MD Abdomen/Pelvis CT 06/14/17 0000 Signed Impressions: Service Date/Time: Wednesday, June 14, 2017 13:46 - CONCLUSION: 1. Left lateral abdominal wall subcutaneous edema, nonspecific but cellulitis would be in the differential. No organized or drainable fluid. 2. Healing splenic lacerations. Rounded 3 cm area of low attenuation anterior tip of the spleen, could be a small intracapsular seroma. Splenic abscess would be in the differential. No other focal abnormalities are seen within the abdominal or pelvic cavity. Brando Angel MD Pelvis X-Ray [id number] Signed Impressions: Service Date/Time: Thursday, June 08, 2017 10:08 - CONCLUSION: Unremarkable limited study. Darek Goncalves Jr., MD Head CT [id number] Signed Impressions: Service Date/Time: Thursday, June 08, 2017 10:56 - CONCLUSION: There is no evidence of any significant hemorrhage or mass effect. Jada Khan MD Cervical Spine CT [id number] Signed Impressions: Service Date/Time: Thursday, June 08, 2017 10:58 - CONCLUSION: 1. No acute cervical fracture or subluxation. 2. Comminuted fracture involving the head of the second right rib at the costovertebral junction. 3. Extensive cervical soft tissue emphysema. Quinton Singh MD Thoracic Spine CT 06/08/17 0000 Signed Impressions: Service Date/Time: Thursday, June 08, 2017 11:04 - CONCLUSION: 1. No acute thoracic spine abnormality is identified. 2. There are multiple displaced left rib fractures. Brando Pittman MD Lumbar Spine CT 06/08/17 0000 Signed Impressions: Service Date/Time: Thursday, June 08, 2017 10:56 - CONCLUSION: 1. Nondisplaced left L3 and L4 transverse process fractures. No unstable spine fracture or injury is identified. 2. Degenerative disc disease at L5-S1. Brando Pittman MD PHYSICAL EXAMINATION: GENERAL: On the ventilator. HEENT: The head is atraumatic. Extraocular movements appear grossly intact. Pupils reactive to light without icterus. Oropharynx intubated. NECK: Supple. No adenopathy. LUNGS: Basilar rhonchi. HEART: Regular S1-S2, without any murmurs. ABDOMEN: Obese, distended, tympanic to percussion. EXTREMITIES: No clubbing or cyanosis. No edema. SKIN: No rash. NEUROLOGIC: Unable to assess. PSYCHIATRIC: Unable to assess. IMPRESSION 1. Ventilator associated pneumonia. Acinetobacter/H flu. 2. Respiratory failure. 3. Status post multi-trauma with rib injuries. RECOMMENDATIONS 1. Continue Levaquin 2. Continue vancomycin for now. 3. Monitor sputum culture. 4. Monitor temperature. Humphrey Rascon MD Jun 17, 2017 14:47
[2017-06-17] MEDS: LEVOFLOXACIN 750 MG PREMIX INJ 150 ML IV SCH (17:39)
[2017-06-17] MEDS: QUEtiapine FUMARATE 25 MG TAB PO SCH (20:33)
[2017-06-18] VITALS (12 sets, daily range): BP systolic 94–116; BP diastolic 52–71; PULSE 66–85; RESP 20–32; TEMP 98.1–99.3; O2SAT 95–100
[2017-06-18] MEDS: VANCOMYCIN INJ 2,500 MG in SODIUM CHLORID 0.9% 500 ML INJ 500 ML IV SCH ×2 (03:29→14:03)
[2017-06-18] MEDS: METHOCARBAMOL 500 MG TAB PO SCH ×3 (03:30→18:42)
[2017-06-18] MEDS: PROPOFOL 1000 MG/100 ML INJ 100 ML IV SCH ×2 (03:30→06:32)
[2017-06-18] MEDS: DEXAMETHASONE SOD PHOS 4 MG/ML VIAL IV SCH ×4 (03:30→22:48)
[2017-06-18] MEDS: ARTIFICIAL TEARS OPTH SOLN 15 ML BTL EACH EYE SCH ×5 (03:31→19:28)
[2017-06-18] MEDS: ACETAMINOPHEN 650 MG/20.3 ML UDC PO SCH (06:32)
[2017-06-18] MEDS: GABAPENTIN 300 MG CAP PO SCH ×3 (08:14→18:42)
[2017-06-18] MEDS: CHLORHEXIDINE 0.12% (ORAL KIT) 15 ML CUP MT SCH ×2 (08:14→19:29)
[2017-06-18] MEDS: DOCUSATE SODIUM 50 MG/SENNA 8.6 MG TAB PO SCH ×2 (08:14→21:00)
[2017-06-18] MEDS: SODIUM CHLORIDE 0.9% FLUSH 10 ML FLUSH IV FLUSH SCH ×2 (08:15→21:00)
[2017-06-18] MEDS: LACTULOSE SYRUP 20 GM/30 ML CUP PO SCH (08:16)
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
[2017-06-18] MEDS ORDERED: BUMETANIDE INJ 1 MG/4 ML VIAL IV PUSH ONE (09:45)
[2017-06-18] MEDS: PANTOPRAZOLE SODIUM 40 MG VIAL IV SCH (11:27)
[2017-06-18] MEDS: ENOXAPARIN SODIUM 40 MG/0.4 ML SYRINGE SQ SCH (11:29)
[2017-06-18] MEDS ORDERED: MORPHINE SULFATE 4 MG/ML INJ IV PRN (11:45)
[2017-06-18 13:12] LABS: MEAN CELL VOLUME 86.4 FL (80.0-100.0); MEAN CORPUSCULAR HEMOGLOBIN 28.1 PG (27.0-34.0); MEAN CORPUSCULAR HGB CONC 32.5 % (32.0-36.0); PLATELET COUNT 351 TH/MM3 (150-450); RED BLOOD COUNT 3.59 MIL/MM3 (4.50-5.90); RED CELL DISTRIBUTION WIDTH 13.9 % (11.6-17.2); REVIEW FLAG FINAL; WHITE BLOOD COUNT 14.4 TH/MM3 (4.0-11.0)
[2017-06-18 13:35] LABS: BICARBONATE 28.2 MEQ/L (21.0-32.0); POTASSIUM 4.2 MEQ/L (3.5-5.1)
[2017-06-18] MEDS ORDERED: PHARMACY ORDERED LAB ONE (13:45)
[2017-06-18] MEDS ORDERED: fentaNYL 75 MCG/HR PATCH T-DERMAL SCH (14:00)
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
[2017-06-18] MEDS: LEVOFLOXACIN 750 MG PREMIX INJ 150 ML IV SCH (18:42)
[2017-06-18] MEDS: QUEtiapine FUMARATE 25 MG TAB PO SCH (21:00)
[2017-06-19] VITALS (10 sets, daily range): BP systolic 99–133; BP diastolic 56–86; PULSE 74–90; RESP 18–26; TEMP 95.6–99.6; O2SAT 91–97
[2017-06-19] MEDS: DEXAMETHASONE SOD PHOS 4 MG/ML VIAL IV SCH ×2 (03:21→09:53)
[2017-06-19] MEDS: ARTIFICIAL TEARS OPTH SOLN 15 ML BTL EACH EYE SCH ×6 (03:21→20:00)
[2017-06-19] MEDS: METHOCARBAMOL 500 MG TAB PO SCH ×3 (03:21→17:09)
[2017-06-19 05:52] LABS: BICARBONATE 27.6 MEQ/L (21.0-32.0); POTASSIUM 4.5 MEQ/L (3.5-5.1)
[2017-06-19] MEDS: SODIUM CHLORIDE 0.9% FLUSH 10 ML FLUSH IV FLUSH SCH ×2 (09:00→21:00)
[2017-06-19] MEDS: LACTULOSE SYRUP 20 GM/30 ML CUP PO SCH (09:00)
[2017-06-19] MEDS: DOCUSATE SODIUM 50 MG/SENNA 8.6 MG TAB PO SCH ×2 (09:00→21:00)
[2017-06-19] MEDS: CHLORHEXIDINE 0.12% (ORAL KIT) 15 ML CUP MT SCH (09:51)
[2017-06-19] MEDS: GABAPENTIN 300 MG CAP PO SCH ×3 (09:53→17:09)
[2017-06-19] MEDS ORDERED: ACETAMINOPHEN 325 MG TAB PO PRN (10:00)
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
[2017-06-19] MEDS: ENOXAPARIN SODIUM 40 MG/0.4 ML SYRINGE SQ SCH (10:42)
[2017-06-19 12:54] LABS: HEMATOCRIT 33.4 % (39.0-51.0); MEAN CELL VOLUME 85.9 FL (80.0-100.0); MEAN CORPUSCULAR HEMOGLOBIN 28.7 PG (27.0-34.0); MEAN CORPUSCULAR HGB CONC 33.4 % (32.0-36.0); PLATELET COUNT 368 TH/MM3 (150-450); RED BLOOD COUNT 3.89 MIL/MM3 (4.50-5.90); RED CELL DISTRIBUTION WIDTH 14.1 % (11.6-17.2); REVIEW FLAG FINAL; WHITE BLOOD COUNT 22.5 TH/MM3 (4.0-11.0)
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
[2017-06-19] MEDS ORDERED: VANCOMYCIN INJ 2,000 MG in SODIUM CHLORID 0.9% 500 ML INJ 500 ML IV ONE (16:00)
[2017-06-19] MEDS: LEVOFLOXACIN 750 MG PREMIX INJ 150 ML IV SCH (17:23)
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
[2017-06-19] MEDS: AMPICILLIN-SULBACTAM INJ 3 GM in SODIUM CHLORIDE 0.9% INJ 100 ML IV SCH (18:00)
[2017-06-19 19:27] LABS: C. DIFF EPI 027 PRESUMPTIVE NEGATIVE (NEGATIVE)
[2017-06-19 19:39] LABS: C. DIFF TOXIN PCR POSITIVE (NEGATIVE)
[2017-06-19] MEDS: QUEtiapine FUMARATE 25 MG TAB PO SCH (22:29)
[2017-06-20] VITALS (8 sets, daily range): BP systolic 117–135; BP diastolic 64–72; PULSE 86–101; RESP 18–24; TEMP 95.7–98.2; O2SAT 91–97
[2017-06-20] MEDS: AMPICILLIN-SULBACTAM INJ 3 GM in SODIUM CHLORIDE 0.9% INJ 100 ML IV SCH ×4 (01:28→18:22)
[2017-06-20] MEDS: METHOCARBAMOL 500 MG TAB PO SCH ×3 (01:28→18:22)
[2017-06-20] MEDS: ARTIFICIAL TEARS OPTH SOLN 15 ML BTL EACH EYE SCH ×6 (03:30→20:00)
--- NOTE | 2017-06-20 06:08 | RADRPT ---
EXAM DATE/TIME: 06/20/2017 05:14 [facility] COMPARISON: CHEST SINGLE AP, June 16, 2017, 13:05. INDICATIONS : Evaluate post chest tube removal. MEDICAL HISTORY : None. SURGICAL HISTORY : None. ENCOUNTER: Subsequent ACUITY: 3 days PAIN SCORE: 8/10 LOCATION: Bilateral chest FINDINGS: A single view of the chest demonstrates left basilar pleural-parenchymal density. Removal of left-shamika ed chest tube without pneumothorax. The cardiomediastinal contours are unremarkable. Multiple left-si ded rib fractures. CONCLUSION: 1. No pneumothorax. 2. Left basilar density. Estevan Charles MD on June 20, 2017 at 6:06 Board Certified Radiologist. This report was verified electronically.
[2017-06-20 07:30] LABS: HEMATOCRIT 30.8 % (39.0-51.0); MEAN CELL VOLUME 86.6 FL (80.0-100.0); MEAN CORPUSCULAR HEMOGLOBIN 28.7 PG (27.0-34.0); MEAN CORPUSCULAR HGB CONC 33.2 % (32.0-36.0); PLATELET COUNT 337 TH/MM3 (150-450); RED BLOOD COUNT 3.55 MIL/MM3 (4.50-5.90); RED CELL DISTRIBUTION WIDTH 14.3 % (11.6-17.2); REVIEW FLAG FINAL; WHITE BLOOD COUNT 14.9 TH/MM3 (4.0-11.0)
[2017-06-20 07:50] LABS: BICARBONATE 28.4 MEQ/L (21.0-32.0); POTASSIUM 3.7 MEQ/L (3.5-5.1)
[2017-06-20 08:36] LABS: BLOOD GAS BASE EXCESS 3.4 mmol/L (-2-2); BLOOD GAS CARBOXYHEMOGLOBIN 1.7 % (0-4); BLOOD GAS HCO3 27 mmol/L (22-26); BLOOD GAS METHEMOGLOBIN 0.8 % (0-2); BLOOD GAS O2 HGB SATURATION 91 % (90-100); BLOOD GAS OXYGEN CONTENT 15.8 Vol % (12.0-20.0); BLOOD GAS PCO2 42 mmHg (38-42); BLOOD GAS PO2 70 mmHg (61-120); BLOOD GAS TOTAL HGB 12.4 G/DL (12.0-16.0); CRITICAL VALUE NO; DRAW SITE LT RADIAL; LITER FLOW 5 L/M; NUMBER OF ARTERIAL PUNCTURES 1; OXYGEN DEVICE NASAL CANNULA; STAT YES; TEMP CORR TO 98.6; ULNAR PULSE PRESENT
[2017-06-20] MEDS ORDERED: RESP: ALBUTEROL 2.5 MG/IPRATROPIUM 0.5 MG NEB (SCH) NEB ONE (09:00)
[2017-06-20] MEDS: DOCUSATE SODIUM 50 MG/SENNA 8.6 MG TAB PO SCH ×2 (09:00→20:37)
[2017-06-20] MEDS ORDERED: RESP: ALBUTEROL 2.5 MG/IPRATROPIUM 0.5 MG NEB (PRN) NEB (09:00)
[2017-06-20] MEDS: LACTULOSE SYRUP 20 GM/30 ML CUP PO SCH (09:51)
[2017-06-20] MEDS: GABAPENTIN 300 MG CAP PO SCH ×3 (09:55→18:22)
[2017-06-20] MEDS: FAMOTIDINE 20 MG TAB PO SCH ×2 (09:56→20:37)
[2017-06-20] MEDS: SODIUM CHLORIDE 0.9% FLUSH 10 ML FLUSH IV FLUSH SCH ×2 (10:11→20:37)
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
[2017-06-20] MEDS: RESP: ALBUTEROL 2.5 MG/IPRATROPIUM 0.5 MG NEB (SCH) NEB ×3 (11:41→19:53)
[2017-06-20] MEDS: ENOXAPARIN SODIUM 40 MG/0.4 ML SYRINGE SQ SCH (12:25)
[2017-06-20] MEDS ORDERED: SENN1TAB PO (12:56)
[2017-06-20] MEDS: VANCOMYCIN 500 MG VIAL (FOR ORAL USE ONLY) PO SCH ×2 (14:23→18:20)
[2017-06-20] MEDS ORDERED: HALOPERIDOL LACTATE 5 MG/ML AMP IV PRN (15:45)
[2017-06-20 17:03] LABS: HEMATOCRIT 30.9 % (39.0-51.0); REVIEW FLAG FINAL
[2017-06-20] MEDS: QUEtiapine FUMARATE 25 MG TAB PO SCH (20:37)
[2017-06-21] MEDS: VANCOMYCIN 500 MG VIAL (FOR ORAL USE ONLY) PO SCH ×5 (00:09→23:39)
[2017-06-21] MEDS: AMPICILLIN-SULBACTAM INJ 3 GM in SODIUM CHLORIDE 0.9% INJ 100 ML IV SCH ×5 (00:10→23:38)
[2017-06-21] MEDS: RESP: ALBUTEROL 2.5 MG/IPRATROPIUM 0.5 MG NEB (SCH) NEB ×6 (00:20→21:33)
[2017-06-21] MEDS: METHOCARBAMOL 500 MG TAB PO SCH ×4 (01:25→23:47)
[2017-06-21 04:00] VITALS: BP 128/63; PULSE 98; RESP 19; TEMP 96.8; O2SAT 93
[2017-06-21] MEDS: ARTIFICIAL TEARS OPTH SOLN 15 ML BTL EACH EYE SCH ×5 (04:00→23:44)
[2017-06-21 06:58] LABS: HEMATOCRIT 29.1 % (39.0-51.0); MEAN CELL VOLUME 86.7 FL (80.0-100.0); MEAN CORPUSCULAR HEMOGLOBIN 28.2 PG (27.0-34.0); MEAN CORPUSCULAR HGB CONC 32.5 % (32.0-36.0); PLATELET COUNT 339 TH/MM3 (150-450); RED BLOOD COUNT 3.36 MIL/MM3 (4.50-5.90); RED CELL DISTRIBUTION WIDTH 14.4 % (11.6-17.2); REVIEW FLAG FINAL; WHITE BLOOD COUNT 10.2 TH/MM3 (4.0-11.0)
[2017-06-21 07:28] LABS: BICARBONATE 28.2 MEQ/L (21.0-32.0); POTASSIUM 3.8 MEQ/L (3.5-5.1)
[2017-06-21 07:47] VITALS: O2SAT 95
[2017-06-21 08:00] VITALS: BP 115/58; PULSE 93; RESP 18; TEMP 97.6; O2SAT 94
[2017-06-21] MEDS: LACTULOSE SYRUP 20 GM/30 ML CUP PO SCH (09:00)
[2017-06-21] MEDS: DOCUSATE SODIUM 50 MG/SENNA 8.6 MG TAB PO SCH ×2 (09:00→21:00)
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
[2017-06-21] MEDS: ENOXAPARIN SODIUM 40 MG/0.4 ML SYRINGE SQ SCH (10:23)
[2017-06-21] MEDS: FAMOTIDINE 20 MG TAB PO SCH ×2 (10:23→22:12)
[2017-06-21] MEDS: GABAPENTIN 300 MG CAP PO SCH ×3 (10:23→18:05)
[2017-06-21] MEDS: SODIUM CHLORIDE 0.9% FLUSH 10 ML FLUSH IV FLUSH SCH ×2 (11:46→22:10)
[2017-06-21 12:00] VITALS: BP 130/61; PULSE 101; RESP 20; TEMP 96; O2SAT 96
[2017-06-21] MEDS ORDERED: fentaNYL 50 MCG/HR PATCH T-DERMAL SCH (14:00)
[2017-06-21] MEDS ORDERED: REMOVE OLD DURAGESIC (FENTANYL) PATCH T-DERMAL SCH (14:00)
[2017-06-21 16:00] VITALS: BP 127/60; PULSE 95; RESP 20; TEMP 96.5; O2SAT 95
[2017-06-21 20:00] VITALS: BP 119/61; PULSE 89; PULSE 98; RESP 20; TEMP 97.4; O2SAT 93
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
[2017-06-21] MEDS: QUEtiapine FUMARATE 25 MG TAB PO SCH (22:11)
[2017-06-22] VITALS (10 sets, daily range): BP systolic 120–135; BP diastolic 54–75; PULSE 89–112; RESP 16–20; TEMP 96.2–99.2; O2SAT 91–98
[2017-06-22] MEDS: ARTIFICIAL TEARS OPTH SOLN 15 ML BTL EACH EYE SCH ×4 (03:05→20:00)
[2017-06-22] MEDS: RESP: ALBUTEROL 2.5 MG/IPRATROPIUM 0.5 MG NEB (SCH) NEB ×6 (04:00→23:50)
[2017-06-22] MEDS: VANCOMYCIN 500 MG VIAL (FOR ORAL USE ONLY) PO SCH ×3 (06:59→18:06)
[2017-06-22] MEDS: AMPICILLIN-SULBACTAM INJ 3 GM in SODIUM CHLORIDE 0.9% INJ 100 ML IV SCH ×3 (06:59→18:07)
[2017-06-22] MEDS: QUEtiapine FUMARATE 25 MG TAB PO SCH ×2 (08:25→22:27)
[2017-06-22] MEDS: FAMOTIDINE 20 MG TAB PO SCH ×2 (08:26→22:27)
[2017-06-22] MEDS: GABAPENTIN 300 MG CAP PO SCH ×3 (08:26→18:06)
[2017-06-22] MEDS: DOCUSATE SODIUM 50 MG/SENNA 8.6 MG TAB PO SCH ×2 (08:33→21:00)
[2017-06-22] MEDS: LACTULOSE SYRUP 20 GM/30 ML CUP PO SCH (08:33)
[2017-06-22] MEDS: SODIUM CHLORIDE 0.9% FLUSH 10 ML FLUSH IV FLUSH SCH ×2 (09:00→22:28)
[2017-06-22] MEDS: METHOCARBAMOL 500 MG TAB PO SCH ×2 (10:00→18:06)
[2017-06-22] MEDS: ENOXAPARIN SODIUM 40 MG/0.4 ML SYRINGE SQ SCH (11:00)
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
[2017-06-23] VITALS (11 sets, daily range): BP systolic 107–145; BP diastolic 59–69; PULSE 81–109; RESP 17–22; TEMP 96.7–99; O2SAT 92–98
[2017-06-23] MEDS: ARTIFICIAL TEARS OPTH SOLN 15 ML BTL EACH EYE SCH ×6 (01:27→22:37)
[2017-06-23] MEDS: VANCOMYCIN 500 MG VIAL (FOR ORAL USE ONLY) PO SCH ×4 (01:27→18:17)
[2017-06-23] MEDS: METHOCARBAMOL 500 MG TAB PO SCH ×3 (01:36→18:00)
[2017-06-23] MEDS: RESP: ALBUTEROL 2.5 MG/IPRATROPIUM 0.5 MG NEB (SCH) NEB ×6 (04:53→23:46)
[2017-06-23 05:11] LABS: HEMATOCRIT 29.6 % (39.0-51.0); MEAN CELL VOLUME 85.8 FL (80.0-100.0); MEAN CORPUSCULAR HEMOGLOBIN 28.8 PG (27.0-34.0); MEAN CORPUSCULAR HGB CONC 33.5 % (32.0-36.0); PLATELET COUNT 383 TH/MM3 (150-450); RED BLOOD COUNT 3.45 MIL/MM3 (4.50-5.90); RED CELL DISTRIBUTION WIDTH 14.6 % (11.6-17.2); REVIEW FLAG FINAL; WHITE BLOOD COUNT 15.5 TH/MM3 (4.0-11.0)
[2017-06-23 05:32] LABS: BICARBONATE 27.3 MEQ/L (21.0-32.0); POTASSIUM 4.5 MEQ/L (3.5-5.1)
--- NOTE | 2017-06-23 07:23 | RADRPT ---
EXAM DATE/TIME: 06/23/2017 05:33 [place] COMPARISON: CHEST SINGLE AP, June 20, 2017, 5:14. INDICATIONS : Pain bilateral chest MEDICAL HISTORY : pneumothorax, rib fractures, splenic laceration SURGICAL HISTORY : None. ENCOUNTER: Subsequent ACUITY: 3 weeks PAIN SCORE: 2/10 LOCATION: Bilateral chest FINDINGS: A single view of the chest demonstrates minimal left basilar pleural-parenchymal density. No pneumoth orax. Heart enlarged. The cardiomediastinal contours are unremarkable. Multiple left-sided rib fract ures. CONCLUSION: Stable chest. No pneumothorax. Estevan Charles MD on June 23, 2017 at 7:20 Board Certified Radiologist. This report was verified electronically.
[2017-06-23] MEDS: DOCUSATE SODIUM 50 MG/SENNA 8.6 MG TAB PO SCH ×2 (08:30→21:00)
[2017-06-23] MEDS: QUEtiapine FUMARATE 25 MG TAB PO SCH ×2 (08:39→22:36)
[2017-06-23] MEDS: GABAPENTIN 300 MG CAP PO SCH ×3 (08:39→18:00)
[2017-06-23] MEDS: FAMOTIDINE 20 MG TAB PO SCH ×2 (08:40→22:35)
[2017-06-23] MEDS: ENOXAPARIN SODIUM 40 MG/0.4 ML SYRINGE SQ SCH (08:48)
[2017-06-23] MEDS: SODIUM CHLORIDE 0.9% FLUSH 10 ML FLUSH IV FLUSH SCH ×2 (09:00→21:00)
[2017-06-23] MEDS: LACTULOSE SYRUP 20 GM/30 ML CUP PO SCH (09:00)
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
[2017-06-23] MEDS ORDERED: ENOX40P SQ (10:53)
[2017-06-23] MEDS ORDERED: BISA10R RECTAL (10:53)
[2017-06-23] MEDS ORDERED: ACET1TAB86 PO (10:53)
[2017-06-23] MEDS ORDERED: QUET1TAB7 PO (14:53)
[2017-06-23] MEDS ORDERED: METH500T3 PO (14:53)
[2017-06-23] MEDS ORDERED: NEUR300C PO (14:53)
[2017-06-23] MEDS ORDERED: Lactulose Liq PO (14:53)
[2017-06-23] MEDS ORDERED: VANC500I3 PO (14:53)
[2017-06-23] MEDS ORDERED: OXYC-392 PO (14:53)
[2017-06-23] MEDS ORDERED: FAMO20TA2 PO (14:53)
[2017-06-24] MEDS: VANCOMYCIN 500 MG VIAL (FOR ORAL USE ONLY) PO SCH ×2 (01:34→05:51)
[2017-06-24] MEDS: ARTIFICIAL TEARS OPTH SOLN 15 ML BTL EACH EYE SCH ×3 (01:34→08:24)
[2017-06-24] MEDS: METHOCARBAMOL 500 MG TAB PO SCH ×2 (01:34→08:24)
[2017-06-24] MEDS: RESP: ALBUTEROL 2.5 MG/IPRATROPIUM 0.5 MG NEB (SCH) NEB ×3 (03:09→11:41)
[2017-06-24 04:17] VITALS: BP 125/66; PULSE 83; RESP 18; TEMP 96.8; O2SAT 94
[2017-06-24 07:43] VITALS: O2SAT 95
[2017-06-24 08:00] VITALS: BP 113/64; PULSE 96; RESP 18; TEMP 97.1; O2SAT 93
[2017-06-24] MEDS: LACTULOSE SYRUP 20 GM/30 ML CUP PO SCH (08:22)
[2017-06-24] MEDS: DOCUSATE SODIUM 50 MG/SENNA 8.6 MG TAB PO SCH (08:24)
[2017-06-24] MEDS: GABAPENTIN 300 MG CAP PO SCH (08:24)
[2017-06-24] MEDS: FAMOTIDINE 20 MG TAB PO SCH (08:24)
[2017-06-24] MEDS: QUEtiapine FUMARATE 25 MG TAB PO SCH (08:24)
[2017-06-24] MEDS: SODIUM CHLORIDE 0.9% FLUSH 10 ML FLUSH IV FLUSH SCH (08:24)
[2017-06-24] MEDS: ENOXAPARIN SODIUM 40 MG/0.4 ML SYRINGE SQ SCH (11:18)
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
[2017-06-24] MEDS ORDERED: REMOVE OLD PATCH T-DERMAL SCH (14:00)
== END 2017-06-24 12:15 | DRG 963 ==
LOC: NEPI 10:15 → EDBD 10:54 → NEDA 10:54 → N03B 11:22 → N07A 06-19 15:29
PROVIDERS: ADMIT Surgery; ATTEND Surgery
PROC: 0BH17EZ Insertion of Endotracheal Airway into Trachea, Via Natural or Artificial Opening (ICD-10-PCS; principal; 2017-06-08)
PROC: 03HY32Z Insertion of Monitoring Device into Upper Artery, Percutaneous Approach (ICD-10-PCS; 2017-06-08)
PROC: 5A1955Z Respiratory Ventilation, Greater than 96 Consecutive Hours (ICD-10-PCS; 2017-06-08)
PROC: 0W9B30Z Drainage of Left Pleural Cavity with Drainage Device, Percutaneous Approach (ICD-10-PCS; 2017-06-08)
DX: S27.2XXA Traumatic hemopneumothorax, initial encounter (principal); S36.031A Moderate laceration of spleen, initial encounter; J96.01 Acute respiratory failure with hypoxia; S22.5XXA Flail chest, initial encounter for closed fracture; S32.039A Unspecified fracture of third lumbar vertebra, initial encounter for closed fracture; Z68.41 Body mass index [BMI] 40.0-44.9, adult; S27.329A Contusion of lung, unspecified, initial encounter; J95.851 Ventilator associated pneumonia; S32.049A Unspecified fracture of fourth lumbar vertebra, initial encounter for closed fracture; A04.7 Enterocolitis due to Clostridium difficile; F05 Delirium due to known physiological condition; E66.01 Morbid (severe) obesity due to excess calories; V48.5XXA Car driver injured in noncollision transport accident in traffic accident, initial encounter; B96.89 Other specified bacterial agents as the cause of diseases classified elsewhere; Y84.8 Other medical procedures as the cause of abnormal reaction of the patient, or of later complication, without mention of misadventure at the time of the procedure; M54.9 Dorsalgia, unspecified; R40.2412 Glasgow coma scale score 13-15, at arrival to emergency department; J38.4 Edema of larynx; G89.11 Acute pain due to trauma
CPT/HCPCS: 31500; 32551; 36556; 36600; 51702; 70450; 71010; 71260; 72125; 72128; 72131; 72170; 74177; 76937; 80048; 80053; 80202; 80307; 81001; 82435; 82565; 82805; 82947; 83735; 84100; 84132; 84295; 84520; 85014; 85018; 85025; 85027; 85610; 85730; 86850; 86900; 86901; 87040; 87070; 87077; 87086; 87184; 87185; 87186; 87205; 87493; 87641; 94002; 94003; 94150; 94640; 94664; 94667; 94668; 96374; 96375; 99291; C9113; G0390; J0295; J0330; J0690; J1100; J1644; J1650; J1940; J1956; J2060; J2270; J2405; J2543; J3010; J3370; J3475; J7040; J7120; L0172; P9045; Q9967